=== PATIENT | male | born 1980 | race Caucasian/White ===

== ENCOUNTER 2019-07-31 03:48 | Emergency (ER) | payer MEDICAID, MEDICARE ==
[~2019-07-31] VITALS: Ht 171.4 cm; Wt 54.4 kg
[~2019-07-31 03:48] MED LIST: RISP0.253 PO
--- NOTE | 2019-07-31 03:48 | NUR ---
TO ER BED 15 AMBULATORY C/O SI WITH PLAN TO LAY IN THE MIDDLE OF TRAFFIC. NONCOMPLIANT WITH PSYCH MEDS. (+) ETOH. PT AAOX4 NO ACUTE DISTRESS NOTED, RESP EVEN AND UNLABORED. PT CALM AND COOPERATIVE AT THIS TIME. URINE SAMPLE COLLECTED AND SENT TO LAB. PT AGREED TO BE ADMITTED VOLUNTARILY TO ANY BEHAVIORAL UNIT IF BED IS AVAILABLE. FOOD TRAAY PROVIDED TO PT PER PT REQUEST. PLACE PT ON HOSPITAL GOWN, ALL BOLONGINGS REMOVED FROM ROM. 1:1 SITTER AT BEDSIDE FOR PT SAFETY.
[2019-07-31 04:32] LABS: BASOPHILS # (AUTO) 0.1 /CMM (0.0-0.2); BASOPHILS % (AUTO) 0.6 % (0.0-2.0); EOSINOPHILS % (AUTO) 5.4 % (0.0-6.0); HEMATOCRIT 39 % (39-51); HEMOGLOBIN 13.6 g/dL (13.5-17.5); LYMPHOCYTES # (AUTO) 2.8 /CMM (0.8-4.8); LYMPHOCYTES % (AUTO) 28.8 % (20.0-44.0); MEAN CORPUSCULAR HGB CONC 35 g/dl (31.0-36.0); MEAN CORPUSCULAR VOLUME 97 fL (80-96); MONOCYTES # (AUTO) 0.9 /CMM (0.1-1.30); MONOCYTES % (AUTO) 9.2 % (2.0-12.0); NEUTROPHILS # (AUTO) 5.5 /CMM (1.8-8.9); PLATELET COUNT (AUTO) 240 /CMM (150-450); RED BLOOD CELL COUNT(AUTO) 4.06 MIL/uL (4.5-6.0); WHITE BLOOD COUNT (AUTO) 9.7 K/uL (4.3-11.0)
[2019-07-31 04:41] LABS: CALCIUM, SERUM 8.1 mg/dL (8.5-10.1); CREATININE 0.7 mg/dL (0.6-1.3); POTASSIUM 3.6 mmol/L (3.5-5.1)
[2019-07-31 04:46] LABS: ALBUMIN 3.5 g/dL (3.4-5.0); BILIRUBIN,DIRECT 0.1 mg/dL (0.0-0.2); BILIRUBIN,TOTAL 0.4 mg/dL (0.2-1.0); SALICYLATE 2.3 mg/dL (2.8-20.0); TOTAL PROTEIN, SERUM 6.2 g/dL (6.4-8.2)
[2019-07-31 05:25] LABS: APPEARANCE,URINE Clear (CLEAR); BILIRUBIN,URINE Negative (NEGATIVE); BLOOD, URINE Negative Ery/uL (NEGATIVE); COLOR,URINE Yellow (YELLOW); KETONES,URINE Negative (NEGATIVE); LEUKOCYTE ESTERASE ,URINE Negative (NEGATIVE); NITRITE, URINE Negative (NEGATIVE); PROTEIN,URINE Negative (NEGATIVE); UGLUCOSE Negative (NEGATIVE); UROBILINOGEN,URINE 0.2 EU/dL (0.2)
--- NOTE | 2019-07-31 05:41 | NUR ---
PER [facility], NO BEDS AVAILABLE UNTIL 0900 AT ALL LOCATIONS
--- NOTE | 2019-07-31 07:11 | NUR ---
CLINICAL INFORMATION FAXED TO [facility] AND [facility] INTAKE
--- NOTE | 2019-07-31 07:22 | NUR ---
PT SLEEPING, ON MONITOR. EASILY AROUSABLE. VSS. WILL CONTINUE TO MONITOR. 1:1 SITTER AT BEDSIDE.
--- NOTE | 2019-07-31 10:01 | NUR ---
TY was informed by NEDA Cadena that he received a call from [facility] intake stating they cannot accept the pt. due to his insurance is not eligible. TY contacted Josue, light industrial supervisor at [facility] and gave him pt's insurance information. Josue will look into the matter and follow up with TY.
--- NOTE | 2019-07-31 11:24 | NUR ---
TY sent Josue copy of pt' s Medicare card. Per Josue pt. has been accepted to [facility]. Accepting /Dr. Anders. Josue requested to refax clinicals. Clinicals were faxed to [facility] intake .
--- NOTE | 2019-07-31 15:11 | NUR ---
SW received a call from Ernie at [facility] intake stating pt. has been accepted to [facility], Accepting Dr. Bowie/Dr. Anders. Report needs to be called to JEMAL Contreras / .
--- NOTE | 2019-07-31 15:37 | NUR ---
report given to nurse nanda whitehead. awaiting transfer.
--- NOTE | 2019-07-31 15:47 | NUR ---
CALLED [facility] [phone] GLORIA ETA IS [phone]
[2019-07-31 17:17] VITALS: BP 127/75
--- NOTE | 2019-07-31 17:17 | NUR ---
transferred to [facility]. stable condition.
== END 2019-07-31 17:21 ==
LOC: ER 03:53
DX: F10.129 Alcohol abuse with intoxication, unspecified (principal); F09 Unspecified mental disorder due to known physiological condition; R45.851 Suicidal ideations; J44.9 Chronic obstructive pulmonary disease, unspecified; F31.9 Bipolar disorder, unspecified; F44.9 Dissociative and conversion disorder, unspecified; Y90.2 Blood alcohol level of 40-59 mg/100 ml; Z79.899 Other long term (current) drug therapy; Z88.8 Allergy status to other drugs, medicaments and biological substances
CPT/HCPCS: 36415; 80048; 80076; 80305; 80307; 80329; 81001; 85025; 99285; G0480; 81000-TC

== ENCOUNTER 2019-09-06 22:16 | Emergency (ER) | payer MEDICARE, OTHER ==
[~2019-09-06] VITALS: Ht 170.2 cm; Wt 54.4 kg
--- NOTE | 2019-09-06 22:16 | NUR ---
BIB EMS C/O "I TOOK 27 TABLETS OF LAMICTAL". (+) SI, (-) HI. PT AAOX4, VERY EMOTIONAL., PT TO BED 13, -SOB, NAD NOTED, VSS, PENDING MD VASQUES
--- NOTE | 2019-09-06 22:43 | NUR ---
POISON CONTROL CALLED PER DR MITCHELL. SPOKE WITH DASIA PHARMACIST. RECOMMENDS BASELINE EKG, CARDIAC MONITORING, EKG Q4H. MONITOR FOR SEIZURES, TACHYCARDIA,AMS, RESPIRATORY DEPRESSION. CONTINUE SUPPORTIVE MEASURES, BENZO FOR AGITATION OR SEZIURES. IVF IF NEEDED. STATES NO SET OBSERVATION TIME.
[2019-09-06] MEDS ORDERED: LORAZEPAM INJ 2 MG/ML VIAL ONE (22:46)
[2019-09-06 22:48] LABS: BASOPHILS # (AUTO) 0.1 /CMM (0.0-0.2); BASOPHILS % (AUTO) 0.8 % (0.0-2.0); EOSINOPHILS % (AUTO) 2.6 % (0.0-6.0); HEMATOCRIT 43 % (39-51); HEMOGLOBIN 14.4 g/dL (13.5-17.5); LYMPHOCYTES # (AUTO) 3.6 /CMM (0.8-4.8); MEAN CORPUSCULAR HGB CONC 34 g/dl (31.0-36.0); MEAN CORPUSCULAR VOLUME 96 fL (80-96); MONOCYTES # (AUTO) 1.1 /CMM (0.1-1.30); MONOCYTES % (AUTO) 11.2 % (2.0-12.0); NEUTROPHILS % (AUTO) 49.4 % (43.0-81.0); PLATELET COUNT (AUTO) 299 /CMM (150-450); RED BLOOD CELL COUNT(AUTO) 4.48 MIL/uL (4.5-6.0); WHITE BLOOD COUNT (AUTO) 10.1 K/uL (4.3-11.0)
[2019-09-06] MEDS: LORAZEPAM INJ 2 MG/ML VIAL IV ONE (22:50)
[2019-09-06 22:55] LABS: CALCIUM, SERUM 8.7 mg/dL (8.5-10.1); CARBON DIOXIDE 26 mmol/L (21-32); CHLORIDE 106 mmol/L (98-107); CREATININE 0.9 mg/dL (0.6-1.3); GLUCOSE 65 mg/dL (74-106); POTASSIUM 4.5 mmol/L (3.5-5.1); SODIUM SERUM 140 mmol/L (136-145); UREA NITROGEN, BLOOD 19 mg/dL (7-18)
[2019-09-06] MEDS ORDERED: LIDOCAINE 2% JEL UROJET 10 ML MM ONE (22:56)
[2019-09-06 23:00] LABS: ALANINE AMINOTRANSFERASE 54 U/L (12-78); ALBUMIN 3.7 g/dL (3.4-5.0); ALCOHOL, BLOOD 33 mg/dL (0-0); ALKALINE PHOSPHATASE 65 U/L (46-116); ASPARTATE AMINOTRANSFERASE 57 U/L (15-37); BILIRUBIN,DIRECT 0.2 mg/dL (0.0-0.2); BILIRUBIN,TOTAL 0.7 mg/dL (0.2-1.0); TOTAL PROTEIN, SERUM 6.7 g/dL (6.4-8.2)
[2019-09-06] MEDS ORDERED: LORAZEPAM INJ 2 MG/ML VIAL IM ONE (23:00)
[2019-09-06 23:01] LABS: ACETAMINOPHEN < 2 ug/ml (10-30); SALICYLATE 2.7 mg/dL (2.8-20.0)
[2019-09-06] MEDS: LIDOCAINE 2% JEL UROJET 10 ML MM ONE (23:16)
[2019-09-06] MEDS ORDERED: DEXTROSE 50%-WATER 50 ML DISP.SYRIN ONE (23:17)
[2019-09-06] MEDS: DEXTROSE 50%-WATER 50 ML DISP.SYRIN IVP ONE (23:20)
[2019-09-06 23:26] LABS: APPEARANCE,URINE Clear (CLEAR); BILIRUBIN,URINE Negative (NEGATIVE); BLOOD, URINE Negative Ery/uL (NEGATIVE); COLOR,URINE Yellow (YELLOW); KETONES,URINE Trace (NEGATIVE); LEUKOCYTE ESTERASE ,URINE Negative (NEGATIVE); NITRITE, URINE Negative (NEGATIVE); PROTEIN,URINE Negative (NEGATIVE); UGLUCOSE Negative (NEGATIVE); UROBILINOGEN,URINE 0.2 EU/dL (0.2)
--- NOTE | 2019-09-06 23:30 | NUR ---
URINE COLLECTED AND SENT TO LAB
[2019-09-07 00:18] LABS: BACTERIA,URINE None seen /HPF (None Seen); RBC,URINE 0-2 /HPF (0-2); SQUAMOUS EPITHELIAL CELL,UR Few /HPF (None Seen); WBC,URINE 0-2 /HPF (0-3)
--- NOTE | 2019-09-07 00:34 | NUR ---
Patient is resting comfortably in bed with eyes closed. Easily aroused. VSS
--- NOTE | 2019-09-07 01:37 | NUR ---
PT IN BED, AWAKE, SLEEPING, -SOB, PT ON MONITOR, VSS
--- NOTE | 2019-09-07 12:15 | NUR ---
FAXED CLINICALS AND FACESHEET TO [facility]
--- NOTE | 2019-09-07 12:35 | NUR ---
PT ATE LUNCH FELL BACK TO SLEEP
--- NOTE | 2019-09-07 13:05 | NUR ---
[facility]TAKE CALLED. UNABLE TO TAKE PATIENT DUE TO INSURANCE.
--- NOTE | 2019-09-07 13:30 | NUR ---
FAXED CLINICALS AND FACESHEET TO [facility]
--- NOTE | 2019-09-07 16:10 | NUR ---
CALLED [facility] AND LEFT A MESSAGE
--- NOTE | 2019-09-07 17:34 | NUR ---
Patient is resting comfortably in bed with eyes closed. Easily aroused. VSS
--- NOTE | 2019-09-08 07:15 | NUR ---
patient in bed asleep, in no distress, sitter at bedside for constant monitoring. Calm at this time.
--- NOTE | 2019-09-08 08:00 | NUR ---
breakfast tray provided to patient.
--- NOTE | 2019-09-08 09:29 | NUR ---
social service at bedside
[2019-09-08] MEDS ORDERED: LORAZEPAM INJ 2 MG/ML VIAL ONE (09:33)
[2019-09-08] MEDS ORDERED: OLANZAPINE 10 MG VIAL IM ONE (09:33)
[2019-09-08] MEDS ORDERED: LORAZEPAM 1 MG TABLET ONE (09:35)
[2019-09-08] MEDS ORDERED: OLANZAPINE 5 MG TABLET ONE (09:35)
[2019-09-08] MEDS: LORAZEPAM 1 MG TABLET PO ONE (09:40)
[2019-09-08] MEDS: OLANZAPINE 5 MG TABLET PO ONE (09:41)
--- NOTE | 2019-09-08 10:32 | NUR ---
patient asleep, on monitor, in no distress.
--- NOTE | 2019-09-08 10:37 | NUR ---
PAGED EPIC JOHN IBARRA.
--- NOTE | 2019-09-08 11:16 | NUR ---
Pt. signed Voluntary admission form for Behavioral health program.
--- NOTE | 2019-09-08 11:30 | NUR ---
[facility] FOR BED
--- NOTE | 2019-09-08 11:54 | NUR ---
patiet in bed .sleeping.easily arousable.no sob no distress noted.will cotinue to monitor.
--- NOTE | 2019-09-08 13:22 | NUR ---
TY left a voicemail message for [facility] insurance Liaison Jazmyn Tomlinson, requesting to assist the pt. in converting his [employer] insurance from [facility] to [facility]. TY gave her pt's medical record number to follow up.
--- NOTE | 2019-09-08 13:26 | NUR ---
PT ACCEPTED TO [facility] ACCEPTING MD IS DR. CABRERA
--- NOTE | 2019-09-08 13:31 | NUR ---
324-[address] [facility]
--- NOTE | 2019-09-08 13:44 | NUR ---
ALEM SMITH TO [facility] ETA [phone] TRIP#[id number]
[2019-09-08 17:09] VITALS: BP 111/66
--- NOTE | 2019-09-08 17:11 | NUR ---
patient picked up by private ambulance via gurney in no distress, belongings given to patient. Going to [facility].
== END 2019-09-08 17:10 ==
LOC: ER 22:17
DX: T42.6X1A Poisoning by other antiepileptic and sedative-hypnotic drugs, accidental (unintentional), initial encounter (principal); R45.851 Suicidal ideations; F19.10 Other psychoactive substance abuse, uncomplicated; J44.9 Chronic obstructive pulmonary disease, unspecified; F32.9 Major depressive disorder, single episode, unspecified; Z88.8 Allergy status to other drugs, medicaments and biological substances; Z79.899 Other long term (current) drug therapy; Y92.89 Other specified places as the place of occurrence of the external cause
CPT/HCPCS: 36415; 80048; 80076; 80305; 80307; 80329; 81001; 82962 ×2; 85025; 87081; 93005; 96374; 96375; 99285; G0480; J2060; J3490; 81000-TC

== ENCOUNTER 2024-05-11 02:35 | Emergency (ER) | payer BC, OTHER ==
[~2024-05-11] VITALS: Ht 170.2 cm; Wt 61.7 kg
--- NOTE | 2024-05-11 05:46 | NUR ---
covid swab collected
[2024-05-11 05:47] VITALS: BP 122/84; TEMP 98.1; O2SAT 100
--- NOTE | 2024-05-11 05:50 | NUR ---
pt changed into gown and belongings secured in locker
[2024-05-11 06:17] LABS: BASOPHILS % (AUTO) 0.4 % (0.0-2.0); EOSINOPHILS # (AUTO) 0.3 K/uL (0.0-0.7); EOSINOPHILS % (AUTO) 2.9 % (0.0-6.0); HEMATOCRIT 41 % (39-51); HEMOGLOBIN 13.5 g/dL (13.5-17.5); LYMPHOCYTES # (AUTO) 2.7 K/uL (0.8-4.8); LYMPHOCYTES % (AUTO) 23.9 % (20.0-44.0); MEAN CORPUSCULAR HEMOGLOBIN 33 PG (26.0-33.0); MEAN CORPUSCULAR HGB CONC 33 g/dl (31.0-36.0); MEAN CORPUSCULAR VOLUME 99 fL (80-96); MONOCYTES # (AUTO) 1.2 K/uL (0.1-1.30); MONOCYTES % (AUTO) 10.9 % (2.0-12.0); NEUTROPHILS # (AUTO) 6.9 K/uL (1.8-8.9); NEUTROPHILS % (AUTO) 61.9 % (43.0-81.0); PLATELET COUNT (AUTO) 260 K/uL (150-450); RED BLOOD CELL COUNT(AUTO) 4.13 MIL/uL (4.5-6.0); RED CELL DISTRIBUTION WIDTH 13.8 % (11.5-15.0); WHITE BLOOD COUNT (AUTO) 11.1 K/uL (4.3-11.0)
[2024-05-11 06:20] LABS: APPEARANCE,URINE CLEAR (CLEAR); BILIRUBIN,URINE 1+ (NEGATIVE); BLOOD, URINE NEGATIVE Ery/uL (NEGATIVE); COLOR,URINE YELLOW (YELLOW); KETONES,URINE TRACE mg/dL (NEGATIVE); LEUKOCYTE ESTERASE ,URINE NEGATIVE (NEGATIVE); NITRITE, URINE NEGATIVE (NEGATIVE); PROTEIN,URINE NEGATIVE (NEGATIVE); UGLUCOSE NEGATIVE (NEGATIVE); UROBILINOGEN,URINE 0.2 EU/dL (0.2)
[2024-05-11 06:30] LABS: RBC,URINE 0-2 /HPF (0-2)
[2024-05-11 06:31] LABS: ADD URINE CULTURE NO; BACTERIA,URINE None seen /HPF (None Seen); SQUAMOUS EPITHELIAL CELL,UR None Seen /HPF (None Seen); WBC,URINE 0-2 /HPF (0-3)
[2024-05-11 06:34] LABS: AMPHETAMINE, URINE POSITIVE (NEGATIVE); BARBITURATE, URINE NEGATIVE (NEGATIVE); BENZODIAZEPINE, URINE NEGATIVE (NEGATIVE); COCCAINE, URINE NEGATIVE (NEGATIVE); OPIATE, URINE NEGATIVE (NEGATIVE); PHENCYCLIDINE SCREEN,URINE NEGATIVE (NEGATIVE)
[2024-05-11 06:37] LABS: ALANINE AMINOTRANSFERASE 59 U/L (12-78); ALBUMIN 3.9 g/dL (3.4-5.0); ALCOHOL, BLOOD < 3 mg/dL (0-10); ALKALINE PHOSPHATASE 64 U/L (46-116); ASPARTATE AMINOTRANSFERASE 86 U/L (15-37); BILIRUBIN,DIRECT 0.2 mg/dL (0.0-0.2); BILIRUBIN,TOTAL 0.8 mg/dL (0.2-1.0); CALCIUM, SERUM 8.3 mg/dL (8.5-10.1); CARBON DIOXIDE 26 mmol/L (21-32); CHLORIDE 101 mmol/L (98-107); CREATININE 0.9 mg/dL (0.6-1.3); GLUCOSE 138 mg/dL (74-106); POTASSIUM 3.6 mmol/L (3.5-5.1); SALICYLATE 3.7 mg/dL (2.8-20.0); SODIUM SERUM 139 mmol/L (136-145); TOTAL PROTEIN, SERUM 6.8 g/dL (6.4-8.2); UREA NITROGEN, BLOOD 17 mg/dL (7-18)
[2024-05-11 06:48] LABS: CANNABINOID, URINE POSITIVE (NEGATIVE)
[2024-05-11 06:50] LABS: ACETAMINOPHEN <10 ug/ml (10-30)
--- NOTE | 2024-05-11 07:06 | NUR ---
FACESHEET AND CLINICALS FAXED TO [facility].
--- NOTE | 2024-05-11 07:10 | NUR ---
received handoff for patient
--- NOTE | 2024-05-11 08:27 | NUR ---
[facility] ETA [id number]
--- NOTE | 2024-05-11 08:37 | NUR ---
called for report twice, customer service receptionist transfered me to the nurse for this patient to take report unable to contact, phone was just ringing and ringing.
--- NOTE | 2024-05-11 08:50 | NUR ---
attempted to called for report x2 per Michele better time to call is after 0930
--- NOTE | 2024-05-11 09:23 | NUR ---
gave report to Deneen
--- NOTE | 2024-05-11 10:39 | NUR ---
patient verbalized "i am not suicidal anymore, I feel good", md notified and aware.
== END 2024-05-11 11:31 | disposition home or self-care (01) ==
LOC: ER 02:47
DX: R45.851 Suicidal ideations (principal); F19.10 Other psychoactive substance abuse, uncomplicated; F20.9 Schizophrenia, unspecified; F31.9 Bipolar disorder, unspecified; F44.9 Dissociative and conversion disorder, unspecified; F17.200 Nicotine dependence, unspecified, uncomplicated; Z88.8 Allergy status to other drugs, medicaments and biological substances; Z59.00 Homelessness unspecified; Z20.822 Contact with and (suspected) exposure to COVID-19
CPT/HCPCS: 36415; 80048-TC; 80076-TC; 81001; 85025-TC; 98960; G0480

== ENCOUNTER 2024-05-13 06:28 | Emergency (ER) | payer BC, OTHER ==
[~2024-05-13] VITALS: Ht 172.7 cm; Wt 74.8 kg
--- NOTE | 2024-05-13 06:40 | NUR ---
[facility] SEEKING VOLUNTARY ADMISSION TO [facility]. PT ENDORSES SI W NO PLAN.
--- NOTE | 2024-05-13 06:41 | NUR ---
Covid swab sent to lab
--- NOTE | 2024-05-13 06:49 | NUR ---
presented to the ER for c/o SI, requesting voluntary psych admission. patient alert and verbaly responsive. ambulatory to the bathroom w stead gaits. urine sample obtained. covid swab done and sent to the lab. gowned up and belongings were taken away and placed pt on SI precaution/
--- NOTE | 2024-05-13 06:52 | NUR ---
LAB AT BEDSIDE
[2024-05-13 07:10] LABS: BASOPHILS # (AUTO) 0.1 K/uL (0.0-0.2); BASOPHILS % (AUTO) 0.8 % (0.0-2.0); EOSINOPHILS # (AUTO) 0.1 K/uL (0.0-0.7); HEMATOCRIT 42 % (39-51); HEMOGLOBIN 14.1 g/dL (13.5-17.5); LYMPHOCYTES # (AUTO) 2.3 K/uL (0.8-4.8); LYMPHOCYTES % (AUTO) 29.9 % (20.0-44.0); MEAN CORPUSCULAR HEMOGLOBIN 33 PG (26.0-33.0); MEAN CORPUSCULAR HGB CONC 33 g/dl (31.0-36.0); MEAN CORPUSCULAR VOLUME 98 fL (80-96); MONOCYTES # (AUTO) 0.8 K/uL (0.1-1.30); MONOCYTES % (AUTO) 10.3 % (2.0-12.0); NEUTROPHILS # (AUTO) 4.3 K/uL (1.8-8.9); PLATELET COUNT (AUTO) 270 K/uL (150-450); RED BLOOD CELL COUNT(AUTO) 4.33 MIL/uL (4.5-6.0); RED CELL DISTRIBUTION WIDTH 13.5 % (11.5-15.0); WHITE BLOOD COUNT (AUTO) 7.6 K/uL (4.3-11.0)
[2024-05-13 07:13] LABS: APPEARANCE,URINE CLEAR (CLEAR); BILIRUBIN,URINE NEGATIVE (NEGATIVE); BLOOD, URINE NEGATIVE Ery/uL (NEGATIVE); COLOR,URINE YELLOW (YELLOW); KETONES,URINE NEGATIVE (NEGATIVE); LEUKOCYTE ESTERASE ,URINE NEGATIVE (NEGATIVE); NITRITE, URINE NEGATIVE (NEGATIVE); PROTEIN,URINE NEGATIVE (NEGATIVE); UGLUCOSE NEGATIVE (NEGATIVE); UROBILINOGEN,URINE 0.2 EU/dL (0.2)
[2024-05-13 07:32] LABS: AMPHETAMINE, URINE NEGATIVE (NEGATIVE); BARBITURATE, URINE NEGATIVE (NEGATIVE); BENZODIAZEPINE, URINE NEGATIVE (NEGATIVE); CANNABINOID, URINE POSITIVE (NEGATIVE); COCCAINE, URINE NEGATIVE (NEGATIVE); OPIATE, URINE NEGATIVE (NEGATIVE); PHENCYCLIDINE SCREEN,URINE NEGATIVE (NEGATIVE)
[2024-05-13 07:35] LABS: CALCIUM, SERUM 8.9 mg/dL (8.5-10.1); CARBON DIOXIDE 27 mmol/L (21-32); CHLORIDE 102 mmol/L (98-107); CREATININE 0.8 mg/dL (0.6-1.3); GLUCOSE 76 mg/dL (74-106); POTASSIUM 3.5 mmol/L (3.5-5.1); SODIUM SERUM 139 mmol/L (136-145); UREA NITROGEN, BLOOD 14 mg/dL (7-18)
[2024-05-13 07:41] LABS: ACETAMINOPHEN <10 ug/ml (10-30); ALANINE AMINOTRANSFERASE 51 U/L (12-78); ALCOHOL, BLOOD < 3 mg/dL (0-10); ALKALINE PHOSPHATASE 59 U/L (46-116); ASPARTATE AMINOTRANSFERASE 38 U/L (15-37); BILIRUBIN,DIRECT 0.1 mg/dL (0.0-0.2); BILIRUBIN,TOTAL 0.6 mg/dL (0.2-1.0); SALICYLATE 3.1 mg/dL (2.8-20.0); TOTAL PROTEIN, SERUM 6.9 g/dL (6.4-8.2)
--- NOTE | 2024-05-13 07:50 | NUR ---
Zhanna sosa in [facility] - 05/13/24 at 0750 by TREVON faxed clinicals to [facility]
--- NOTE | 2024-05-13 07:51 | NUR ---
faxed clinicals to [facility]
--- NOTE | 2024-05-13 08:33 | NUR ---
called [facility] to follow up, Per Kristine they will call back soon
--- NOTE | 2024-05-13 08:37 | NUR ---
Patient accepted at [facility]. Give report to unit 2 at [phone].
--- NOTE | 2024-05-13 08:39 | NUR ---
[facility] eta 45-60 mins
--- NOTE | 2024-05-13 08:45 | NUR ---
REPORT GIVEN TO ROSENDO JOAQUIN FOR [facility]
--- NOTE | 2024-05-13 09:17 | NUR ---
REPORT GIVEN TO [facility]
[2024-05-13 10:16] VITALS: BP 120/86; TEMP 98.4; O2SAT 99
== END 2024-05-13 09:20 ==
LOC: ER 06:28
DX: R45.851 Suicidal ideations (principal); F31.9 Bipolar disorder, unspecified; F44.9 Dissociative and conversion disorder, unspecified; F19.10 Other psychoactive substance abuse, uncomplicated; F17.200 Nicotine dependence, unspecified, uncomplicated; Z88.8 Allergy status to other drugs, medicaments and biological substances; Z59.00 Homelessness unspecified; Z20.822 Contact with and (suspected) exposure to COVID-19
CPT/HCPCS: 36415; 80048-TC; 80076-TC; 85025-TC; G0480

== ENCOUNTER 2024-05-20 22:42 | Emergency (ER) | payer BC, OTHER ==
[~2024-05-20] VITALS: Ht 167.6 cm; Wt 59.0 kg
[2024-05-21 02:22] LABS: APPEARANCE,URINE CLEAR (CLEAR); BILIRUBIN,URINE NEGATIVE (NEGATIVE); BLOOD, URINE NEGATIVE Ery/uL (NEGATIVE); COLOR,URINE YELLOW (YELLOW); KETONES,URINE NEGATIVE (NEGATIVE); LEUKOCYTE ESTERASE ,URINE NEGATIVE (NEGATIVE); NITRITE, URINE NEGATIVE (NEGATIVE); PROTEIN,URINE NEGATIVE (NEGATIVE); UGLUCOSE NEGATIVE (NEGATIVE); UROBILINOGEN,URINE 0.2 EU/dL (0.2)
[2024-05-21 02:25] LABS: BASOPHILS % (AUTO) 0.5 % (0.0-2.0); EOSINOPHILS # (AUTO) 0.2 K/uL (0.0-0.7); EOSINOPHILS % (AUTO) 2.6 % (0.0-6.0); HEMATOCRIT 41 % (39-51); HEMOGLOBIN 13.8 g/dL (13.5-17.5); LYMPHOCYTES # (AUTO) 3.8 K/uL (0.8-4.8); LYMPHOCYTES % (AUTO) 43.9 % (20.0-44.0); MEAN CORPUSCULAR HEMOGLOBIN 33 PG (26.0-33.0); MEAN CORPUSCULAR HGB CONC 34 g/dl (31.0-36.0); MEAN CORPUSCULAR VOLUME 98 fL (80-96); MONOCYTES % (AUTO) 11.9 % (2.0-12.0); NEUTROPHILS # (AUTO) 3.6 K/uL (1.8-8.9); NEUTROPHILS % (AUTO) 41.1 % (43.0-81.0); PLATELET COUNT (AUTO) 280 K/uL (150-450); RED BLOOD CELL COUNT(AUTO) 4.15 MIL/uL (4.5-6.0); RED CELL DISTRIBUTION WIDTH 13.3 % (11.5-15.0); WHITE BLOOD COUNT (AUTO) 8.8 K/uL (4.3-11.0)
[2024-05-21 02:33] LABS: CARBON DIOXIDE 30 mmol/L (21-32); CHLORIDE 105 mmol/L (98-107); CREATININE 0.8 mg/dL (0.6-1.3); GLUCOSE 83 mg/dL (74-106); POTASSIUM 3.7 mmol/L (3.5-5.1); SODIUM SERUM 141 mmol/L (136-145); UREA NITROGEN, BLOOD 22 mg/dL (7-18)
[2024-05-21 02:35] LABS: AMPHETAMINE, URINE POSITIVE (NEGATIVE); BARBITURATE, URINE NEGATIVE (NEGATIVE); BENZODIAZEPINE, URINE NEGATIVE (NEGATIVE); CANNABINOID, URINE POSITIVE (NEGATIVE); COCCAINE, URINE NEGATIVE (NEGATIVE); OPIATE, URINE NEGATIVE (NEGATIVE); PHENCYCLIDINE SCREEN,URINE NEGATIVE (NEGATIVE)
[2024-05-21 02:39] LABS: ACETAMINOPHEN <10 ug/ml (10-30); ALANINE AMINOTRANSFERASE 25 U/L (12-78); ALBUMIN 3.4 g/dL (3.4-5.0); ALCOHOL, BLOOD < 3 mg/dL (0-10); ALKALINE PHOSPHATASE 108 U/L (46-116); ASPARTATE AMINOTRANSFERASE 13 U/L (15-37); BILIRUBIN,TOTAL 0.4 mg/dL (0.2-1.0); SALICYLATE 2.5 mg/dL (2.8-20.0); TOTAL PROTEIN, SERUM 6.3 g/dL (6.4-8.2)
[2024-05-21] MEDS ORDERED: NALO4SPR BNOSTRILS (09:23)
[2024-05-21 09:37] VITALS: BP 138/76; TEMP 97.8; O2SAT 98
== END 2024-05-21 09:30 | disposition home or self-care (01) ==
LOC: ER 22:53
DX: R45.851 Suicidal ideations (principal); F31.9 Bipolar disorder, unspecified; F17.200 Nicotine dependence, unspecified, uncomplicated; Z20.822 Contact with and (suspected) exposure to COVID-19; Z59.00 Homelessness unspecified; Z88.1 Allergy status to other antibiotic agents; Z88.8 Allergy status to other drugs, medicaments and biological substances
CPT/HCPCS: 36415; 80053-TC; 85025-TC; G0480

== ENCOUNTER 2024-07-20 01:41 | Emergency (ER) | payer OTHER ==
[~2024-07-20] VITALS: Ht 175.3 cm; Wt 65.8 kg
[~2024-07-20 01:41] MED LIST changes: +NALO4SPR BNOSTRILS; -RISP0.253 PO
[2024-07-20 04:10] LABS: BASOPHILS % (AUTO) 0.5 % (0.0-2.0); EOSINOPHILS % (AUTO) 0.6 % (0.0-6.0); HEMATOCRIT 40 % (39-51); HEMOGLOBIN 13.6 g/dL (13.5-17.5); LYMPHOCYTES # (AUTO) 2.3 K/uL (0.8-4.8); LYMPHOCYTES % (AUTO) 27.7 % (20.0-44.0); MEAN CORPUSCULAR HEMOGLOBIN 33 PG (26.0-33.0); MEAN CORPUSCULAR HGB CONC 34 g/dl (31.0-36.0); MEAN CORPUSCULAR VOLUME 99 fL (80-96); MONOCYTES # (AUTO) 0.9 K/uL (0.1-1.30); MONOCYTES % (AUTO) 10.2 % (2.0-12.0); NEUTROPHILS # (AUTO) 5.1 K/uL (1.8-8.9); PLATELET COUNT (AUTO) 275 K/uL (150-450); RED BLOOD CELL COUNT(AUTO) 4.07 MIL/uL (4.5-6.0); RED CELL DISTRIBUTION WIDTH 13.2 % (11.5-15.0); WHITE BLOOD COUNT (AUTO) 8.4 K/uL (4.3-11.0)
[2024-07-20 04:20] LABS: CALCIUM, SERUM 8.4 mg/dL (8.5-10.1); CARBON DIOXIDE 31 mmol/L (21-32); CHLORIDE 102 mmol/L (98-107); CREATININE 0.6 mg/dL (0.6-1.3); GLUCOSE 93 mg/dL (74-106); SODIUM SERUM 141 mmol/L (136-145); UREA NITROGEN, BLOOD 16 mg/dL (7-18)
[2024-07-20 04:26] LABS: ALANINE AMINOTRANSFERASE 34 U/L (12-78); ALBUMIN 3.8 g/dL (3.4-5.0); ALCOHOL, BLOOD < 3 mg/dL (0-10); ALKALINE PHOSPHATASE 47 U/L (46-116); ASPARTATE AMINOTRANSFERASE 24 U/L (15-37); BILIRUBIN,TOTAL 0.7 mg/dL (0.2-1.0); TOTAL PROTEIN, SERUM 6.7 g/dL (6.4-8.2)
[2024-07-20 04:28] LABS: ACETAMINOPHEN <10 ug/ml (10-30); SALICYLATE 1.7 mg/dL (2.8-20.0)
[2024-07-20 06:18] LABS: APPEARANCE,URINE CLEAR (CLEAR); BILIRUBIN,URINE NEGATIVE (NEGATIVE); BLOOD, URINE NEGATIVE Ery/uL (NEGATIVE); COLOR,URINE YELLOW (YELLOW); KETONES,URINE 1+ mg/dL (NEGATIVE); LEUKOCYTE ESTERASE ,URINE NEGATIVE (NEGATIVE); NITRITE, URINE NEGATIVE (NEGATIVE); PROTEIN,URINE NEGATIVE (NEGATIVE); UGLUCOSE NEGATIVE (NEGATIVE); UROBILINOGEN,URINE 0.2 EU/dL (0.2)
[2024-07-20 06:20] LABS: ADD URINE CULTURE NO; BACTERIA,URINE Rare /HPF (None Seen); RBC,URINE 0-2 /HPF (0-2); SQUAMOUS EPITHELIAL CELL,UR Few /HPF (None Seen); WBC,URINE 0-2 /HPF (0-3)
[2024-07-20 06:29] LABS: AMPHETAMINE, URINE POSITIVE (NEGATIVE); BARBITURATE, URINE NEGATIVE (NEGATIVE); BENZODIAZEPINE, URINE NEGATIVE (NEGATIVE); CANNABINOID, URINE POSITIVE (NEGATIVE); COCCAINE, URINE NEGATIVE (NEGATIVE); OPIATE, URINE NEGATIVE (NEGATIVE); PHENCYCLIDINE SCREEN,URINE NEGATIVE (NEGATIVE)
[2024-07-20 08:43] VITALS: BP 118/71; TEMP 98.8; O2SAT 95
== END 2024-07-20 08:43 | disposition home or self-care (01) ==
LOC: ER 01:56
DX: R45.851 Suicidal ideations (principal); F31.9 Bipolar disorder, unspecified; F17.200 Nicotine dependence, unspecified, uncomplicated; Z20.822 Contact with and (suspected) exposure to COVID-19; Z59.00 Homelessness unspecified; Z88.8 Allergy status to other drugs, medicaments and biological substances
CPT/HCPCS: 36415; 80053-TC; 81001; 85025-TC; 98960; G0480

== ENCOUNTER 2024-08-11 04:12 | Emergency (ER) | payer OTHER ==
[~2024-08-11] VITALS: Ht 167.6 cm; Wt 59.0 kg
[2024-08-11 05:12] VITALS: BP 132/72; TEMP 97.9
[2024-08-11] MEDS ORDERED: IBUPROFEN 400 MG TABLET ONE (06:29)
[2024-08-11] MEDS: IBUPROFEN 400 MG TABLET PO ONE (06:34)
[2024-08-11 06:35] VITALS: O2SAT 99
== END 2024-08-11 06:35 | disposition home or self-care (01) ==
LOC: ER 04:19
DX: S60.222A Contusion of left hand, initial encounter (principal); F17.200 Nicotine dependence, unspecified, uncomplicated; F32.A Depression, unspecified; Z59.00 Homelessness unspecified; Z88.8 Allergy status to other drugs, medicaments and biological substances; W18.39XA Other fall on same level, initial encounter; Y93.89 Activity, other specified; Y92.89 Other specified places as the place of occurrence of the external cause; Y99.8 Other external cause status
CPT/HCPCS: 73130-TC